=== PATIENT | male | born 1950 | race Caucasian/White ===

== ENCOUNTER → 2017-09-14 | Outpatient (CLI) | payer MEDICARE, OTHER ==
[2017-09-14 10:49] LABS: MEAN CORPUSCULAR HEMOGLOBIN 30.7 pg (27.0-33.0); MEAN CORPUSCULAR HGB CONC 33.6 g/dl (32.0-36.5); MEAN CORPUSCULAR VOLUME 91.4 fl (80.0-96.0); PLATELET COUNT, AUTOMATED 189 10^3/uL (150-450); RED CELL DISTRIBUTION WIDTH 13.6 % (11.5-14.5); WHITE BLOOD COUNT 8.3 10^3/uL (4.0-10.0)
[2017-09-14 11:18] LABS: ALBUMIN 4.2 GM/DL (3.2-5.2); ANION GAP 4 MEQ/L (8-16); BLOOD UREA NITROGEN 13 MG/DL (7-18); CALCIUM LEVEL 9.4 MG/DL (8.8-10.2); CARBON DIOXIDE LEVEL 33 MEQ/L (21-32); CHLORIDE LEVEL 101 MEQ/L (98-107); CHOLESTEROL LEVEL 179 MG/DL (<200); CREATININE FOR GFR 0.95 MG/DL (0.70-1.30); GLOMERULAR FILTRATION RATE > 60.0 (>49); GLUCOSE, FASTING 115 MG/DL (80-110); PHOSPHORUS LEVEL 3.4 MG/DL (2.5-4.9); POTASSIUM SERUM 4.5 MEQ/L (3.5-5.1); SODIUM LEVEL 138 MEQ/L (136-145); TRIGLYCERIDES LEVEL 256 MG/DL (<150)
== END ==
LOC: M LAB 10:10
PROVIDERS: ATTEND Nurse Practitioner Family
DX: I10 Essential (primary) hypertension (principal)

== ENCOUNTER 2018-07-02 10:52 | Emergency (ER) | payer MEDICARE, OTHER ==
[2018-07-02] MEDS: TETRACAINE 0.5% OPHTH SOLN 4ML OD (11:26)
== END 2018-07-02 11:53 | disposition home or self-care (01) ==
LOC: M ED 10:52
DX: H57.11 Ocular pain, right eye (principal); H40.9 Unspecified glaucoma; I10 Essential (primary) hypertension; E78.5 Hyperlipidemia, unspecified; Z72.0 Tobacco use; Z79.82 Long term (current) use of aspirin; Z79.899 Other long term (current) drug therapy; Z88.0 Allergy status to penicillin
CPT/HCPCS: 99283

== ENCOUNTER → 2019-01-02 | Outpatient (CLI) | payer MEDICARE, OTHER ==
[~2019-01-02] MED LIST: ASPI1TAB15; CRES40TA PO; KLON1TAB PO; LEVO-91 PO; NORCOTAB PO; OCUF0.25 OD; RAMI1CAP26 PO; TRAV04OPD; VITA-182 PO
== END ==
LOC: M LAB 10:02
PROVIDERS: ATTEND Urology
DX: N40.0 Benign prostatic hyperplasia without lower urinary tract symptoms (principal)

== ENCOUNTER → 2020-01-22 | Outpatient (CLI) | payer MEDICARE, OTHER ==
[~2020-01-22] MED LIST changes: +HYDR-3715 PO; -NORCOTAB PO
== END ==
LOC: M LAB 14:54
PROVIDERS: ATTEND Chiropractor Rehabilitation
DX: N40.0 Benign prostatic hyperplasia without lower urinary tract symptoms (principal)

== ENCOUNTER → 2020-04-11 | Outpatient (CLI) | payer MEDICARE, OTHER ==
[~2020-04-11] MED LIST changes: -ASPI1TAB15; +ASPI1TAB15 PO; +CHAN1PAK11 PO; +D31000CA4 PO; +HYDR-643 PO; +RAMI1CAP24 PO; +ROSU40TA4 PO; +SYNT137T7 PO
== END ==
LOC: M LABSMTC 10:44
PROVIDERS: ATTEND Anesthesiology
DX: Z01.818 Encounter for other preprocedural examination (principal); Z11.59 Encounter for screening for other viral diseases
CPT/HCPCS: C9803; U0003

== ENCOUNTER 2020-04-14 08:18 | Day surgery (SDC) | payer MEDICARE, OTHER ==
[~2020-04-14] VITALS: Ht 167.6 cm; Wt 80.7 kg
[~2020-04-14 08:18] MED LIST changes: +NS 1,000 ML IV ONE
[2020-04-14] MEDS ORDERED: propofoL 200 MG/20 ML VIAL As Ordered ONE ×2 (09:08→09:35)
--- NOTE | 2020-04-14 09:40 | ROOR ---
Patient Name: Jet Lino Procedure Date: 04/14/2020 9:05 AM Date of : 1950 Age: 69 Room: [facility] Gender: Male Note Status: Finalized Procedure: Total Colonoscopy to Cecum + Cold Snare Polypectomy + Biopsies Indications: High risk colon cancer surveillance: Personal history of colonic polyps, Last colonoscopy: 2007 Providers: Dante Segovia MD Referring MD: YAMILA WALLS Requesting Provider: Medicines: Monitored Anesthesia Care Complications: No immediate complications. Procedure: Pre-Anesthesia Assessment: - The heart rate, respiratory rate, oxygen saturations, blood pressure, adequacy of pulmonary ventilation, and response to care were monitored throughout the procedure. The Colonoscope was introduced through the anus and advanced to the cecum, identified by appendiceal orifice and ileocecal valve. The colonoscopy was performed without difficulty. The patient tolerated the procedure well. The quality of the bowel preparation was excellent. Findings: The perianal and digital rectal examinations were normal. Non-bleeding internal hemorrhoids were found during retroflexion. The hemorrhoids were small and Grade I (internal hemorrhoids that do not prolapse). Scattered small-mouthed diverticula were found in the recto-sigmoid colon, sigmoid colon and descending colon. Multiple sessile polyps were found in the hepatic flexure. The polyps were small in size. These polyps were removed with a cold biopsy forceps. Resection and retrieval were complete. Multiple sessile polyps were found at 40 cm proximal to the anus. The polyps were small in size. These polyps were removed with a cold snare. Resection and retrieval were complete. Multiple small patchy angioectasias were found in the ascending colon. The exam was otherwise without abnormality on direct and retroflexion views. Impression: - Non-bleeding internal hemorrhoids. - Diverticulosis in the recto-sigmoid colon, in the sigmoid colon and in the descending colon. - Multiple small polyps at the hepatic flexure, removed with a cold biopsy forceps. Resected and retrieved. - Multiple small polyps at 40 cm proximal to the anus, removed with a cold snare. Resected and retrieved. - Multiple colonic angioectasias. - The examination was otherwise normal on direct and retroflexion views. - The exam was otherwise normal to the cecum. Recommendation: - Patient has a contact number available for emergencies. The signs and symptoms of potential delayed complications were discussed with the patient. Return to normal activities tomorrow. Written discharge instructions were provided to the patient. - High fiber diet. - Discharge patient to home. - Continue present medications. - Await pathology results. - Telephone GI clinic for pathology results in 1 week. - Repeat colonoscopy in 5 years for surveillance based on pathology results. - Return to referring physician. - The findings and recommendations were discussed with the patient's family. Dante Segovia MD Dante Segovia MD 04/14/2020 9:40:13 AM Electronically signed by Dante Segovia MD Number of Addenda: 0 Note Initiated On: 04/14/2020 9:05 AM Estimated Blood Loss: Estimated blood loss: none.
[2020-04-14 10:03] VITALS: BP 124/61
== END 2020-04-14 10:05 | disposition home or self-care (01) ==
LOC: M OPP 08:18
PROVIDERS: ATTEND Internal Medicine Gastroenterology
DX: Z12.11 Encounter for screening for malignant neoplasm of colon (principal); Z86.010 Personal history of colon polyps; K57.30 Diverticulosis of large intestine without perforation or abscess without bleeding; K63.5 Polyp of colon; K55.20 Angiodysplasia of colon without hemorrhage; K64.0 First degree hemorrhoids; Z88.0 Allergy status to penicillin

== ENCOUNTER → 2021-06-15 | Outpatient (CLI) | payer MEDICARE, OTHER ==
[~2021-06-15] MED LIST changes: +ASPI-546 PO; -ASPI1TAB15 PO; -NS 1,000 ML IV ONE
--- NOTE | 2021-06-15 14:42 | REP ---
INDICATION: PAIN. COMPARISON: None. TECHNIQUE: Two views right hip. FINDINGS: There is no acute fracture, dislocation or intrinsic bone disease. There is very mild superior joint space narrowing and subchondral sclerosis. IMPRESSION: Very mild degenerative changes. <Electronically signed by Lucian Anne > 06/15/21 [id number]
--- NOTE | 2021-06-15 17:01 | REP ---
INDICATION: CERVICALGIA. COMPARISON: None. TECHNIQUE: Eight views of the cervical spine were performed including flexion and extension lateral views. FINDINGS: There is congenital fusion at C2-3. There is degenerative disc disease, C3-4 through C7-T1 with narrowing of the intervertebral disc spaces and marginal osteophytes. There is 2 mm of degenerative anterolisthesis of C5 on C6, seen only in flexion, and 2 mm of degenerative retrolisthesis of C4 on C5, seen only on extension. There are no compression fractures. There are calcifications in the nuchal ligament seen at the C5-6 level. IMPRESSION: 1. 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 2. Degenerative disc disease, C3-4 through C7-T1. 3. There is degenerative anterolisthesis of C5 on C6, seen only in flexion. 4. There is degenerative retrolisthesis of C4 on C5, seen only in extension. 5. There is evidence of remote injury to the nuchal ligament. <Electronically signed by Dwight Shay > 06/15/21 [id number]
== END ==
LOC: M WUC 13:44
PROVIDERS: ATTEND Physician Assistant
DX: M54.2 Cervicalgia (principal); M25.551 Pain in right hip; M50.320 Other cervical disc degeneration, mid-cervical region, unspecified level; M50.33 Other cervical disc degeneration, cervicothoracic region; M43.22 Fusion of spine, cervical region

== ENCOUNTER → 2022-12-14 | Outpatient (REF) | payer MEDICARE, OTHER ==
[2022-12-14 17:29] LABS: HEMOGLOBIN A1c 5.5 % (4.0-6.0)
== END ==
LOC: M LAB REF 16:11
PROVIDERS: ATTEND Physician Assistant
DX: E11.9 Type 2 diabetes mellitus without complications (principal)

== ENCOUNTER → 2024-03-22 | Outpatient (CLI) | payer MEDICARE, OTHER ==
[~2024-03-22] MED LIST changes: -KLON1TAB PO; +KLON1TAB13 PO; +RAMI10CA64 PO; -RAMI1CAP24 PO; -RAMI1CAP26 PO; +RAMI5CAP60 PO; -ROSU40TA4 PO; +ROSU40TA63 PO
[2024-03-22 17:05] LABS: HEMATOCRIT 48.4 % (42.0-52.0); HEMOGLOBIN 16.6 g/dl (13.5-17.5); MEAN CORPUSCULAR HGB CONC 34.3 g/dl (32.0-36.5); MEAN CORPUSCULAR VOLUME 93.3 fl (80.0-96.0); PLATELET COUNT, AUTOMATED 179 10^3/uL (150-450); RED BLOOD COUNT 5.19 10^6/uL (4.30-6.10)
[2024-03-22 17:06] LABS: APPEARANCE, URINE CLOUDY (CLEAR); BACTERIA, URINE AUTO NEGATIVE (NEGATIVE); BILIRUBIN, URINE AUTO NEGATIVE (NEGATIVE); BLOOD, URINE BLOOD NEGATIVE (NEGATIVE); COLOR, URINE YELLOW (YELLOW); GLUCOSE, URINE (UA) AUTO NEGATIVE (NEGATIVE); KETONE, URINE AUTO NEGATIVE (NEGATIVE); LEUKOCYTE ESTERASE, URINE AUTO NEGATIVE (NEGATIVE); MUCUS, URINE SMALL (NEGATIVE); NITRITE, URINE AUTO NEGATIVE (NEGATIVE); PROTEIN, URINE AUTO 2+ mg/dL (NEGATIVE); RBC, URINE AUTO 1 /HPF (0-3); SPECIFIC GRAVITY URINE AUTO 1.015 (1.002-1.035); SQUAMOUS EPITHELIAL CELL UR AU 0 /HPF (0-6); UROBILINOGEN, URINE AUTO 0.2 mg/dL (0.0-2.0); WBC, URINE AUTO 2 /HPF (0-3)
[2024-03-22 17:24] LABS: HEMOGLOBIN A1c 5.7 % (4.0-6.0)
[2024-03-22 17:32] LABS: PROSTATIC SPECIFIC AG MONITOR 1.13 NG/ML (< 4.00)
[2024-03-22 17:34] LABS: ALBUMIN 3.9 G/DL (3.2-5.2); ALKALINE PHOSPHATASE 83 U/L (46-116); ALT/SGPT 41 U/L (7.0-40); AST/SGOT 45 U/L (<34); BILIRUBIN,TOTAL 0.8 MG/DL (0.3-1.2); BLOOD UREA NITROGEN 12 MG/DL (9-23); CALCIUM LEVEL 9.4 MG/DL (8.3-10.6); CARBON DIOXIDE LEVEL 28 MMOL/L (20-31); CHLORIDE LEVEL 104 MMOL/L (98-107); CHOLESTEROL LEVEL 161 MG/DL (<200); CHOLESTEROL RISK RATIO 2.55 (<5); CREATININE FOR GFR 0.94 MG/DL (0.70-1.30); GLOMERULAR FILTRATION RATE > 60.0 (>42); GLUCOSE, FASTING 107 MG/DL (74-106); HDL CHOLESTEROL 62.9 MG/DL (>40); LDL CHOLESTEROL 55.7 MG/DL (<100); NON-HDL-C 98.1 MG/DL; POTASSIUM SERUM 4.6 MMOL/L (3.5-5.1); SODIUM LEVEL 138 MMOL/L (136-145); TOTAL PROTEIN 7.2 G/DL (5.7-8.2); TRIGLYCERIDES LEVEL 212 MG/DL (<150)
[2024-03-22 17:36] LABS: THYROID STIMULATING HORMONE 3.596 uIU/ML (0.55-4.78)
[2024-03-23 07:02] LABS: WHITE BLOOD COUNT 7.3 10^3/uL (4.0-10.0)
== END ==
LOC: M WUC 11:33
PROVIDERS: ATTEND Physician Assistant
DX: E11.9 Type 2 diabetes mellitus without complications (principal); E78.2 Mixed hyperlipidemia; E03.9 Hypothyroidism, unspecified; Z12.5 Encounter for screening for malignant neoplasm of prostate; R35.1 Nocturia; I10 Essential (primary) hypertension

== ENCOUNTER → 2024-10-19 | Outpatient (CLI) | payer MEDICARE, OTHER ==
[~2024-10-19] MED LIST changes: -ROSU40TA63 PO; +ROSU40TA81 PO
== END ==
LOC: M WUC 15:27
PROVIDERS: ATTEND Physician Assistant
DX: R04.2 Hemoptysis (principal); F17.210 Nicotine dependence, cigarettes, uncomplicated

== ENCOUNTER 2025-03-13 08:55 | Day surgery (SDC) | payer MEDICARE, OTHER ==
[~2025-03-13] VITALS: Ht 167.6 cm; Wt 82.0 kg
[~2025-03-13 08:55] MED LIST changes: +BUPR-71 PO; +CLON2TAB7 PO; +LEVO137T2 PO; +TRAV2.5D OU; +VITA100093 PO
[2025-03-13] MEDS ORDERED: propofoL 200 MG/20 ML VIAL As Ordered ONE (10:41)
[2025-03-13 10:50] VITALS: BP 142/68; O2SAT 96
== END 2025-03-13 11:02 | disposition home or self-care (01) ==
LOC: M OPP 08:55
PROVIDERS: ATTEND Internal Medicine Gastroenterology
DX: Z12.11 Encounter for screening for malignant neoplasm of colon (principal); D12.6 Benign neoplasm of colon, unspecified; K57.30 Diverticulosis of large intestine without perforation or abscess without bleeding; K64.0 First degree hemorrhoids; Z86.0100 Personal history of colon polyps, unspecified; I25.10 Atherosclerotic heart disease of native coronary artery without angina pectoris; Z95.5 Presence of coronary angioplasty implant and graft; Z88.0 Allergy status to penicillin; Z79.82 Long term (current) use of aspirin; Z79.899 Other long term (current) drug therapy; J44.9 Chronic obstructive pulmonary disease, unspecified; F17.210 Nicotine dependence, cigarettes, uncomplicated

== ENCOUNTER → 2025-05-23 | Outpatient (CLI) | payer MEDICARE, OTHER | LOC: M RAD 10:13 | PROVIDERS: ATTEND Physician Assistant | DX: M25.561 Pain in right knee (principal) ==